=== PATIENT | female | born 1970 | race Caucasian/White ===

== ENCOUNTER → 2021-05-11 | Outpatient (CLI) | payer BC ==
[~2021-05-11] MED LIST: GASTROGRAFIN SOLUTION 30ML (Q9963) As Ordered ONE; ISOVUE-370 76% 100ML VIAL As Ordered ONE
== END ==
LOC: M RAD 11:38
PROVIDERS: ATTEND Surgery
DX: D17.79 Benign lipomatous neoplasm of other sites (principal)
CPT/HCPCS: 74177; Q9963; Q9967